=== PATIENT | female | born 1940 | race Caucasian/White ===

== ENCOUNTER 2018-06-19 16:09 | Outpatient (CLI) | payer MEDICARE, MEDICAID ==
[~2018-06-19] VITALS: Ht 165.1 cm; Wt 87.5 kg
[2018-06-19] MEDS ORDERED: albuterol 2.5 MG/3 ML nebule ONE (16:48)
[2018-06-19] MEDS ORDERED: albuterol 2.5 MG/3 ML nebule NEB ONE (16:48)
== END 2018-06-19 23:59 | disposition home or self-care (01) ==
LOC: RT 16:09
PROVIDERS: ATTEND Internal Medicine Pulmonary Disease
DX: J98.4 Other disorders of lung (principal); Z88.0 Allergy status to penicillin
CPT/HCPCS: 94060; 94727; 94729; 94760

== ENCOUNTER 2021-08-17 08:13 | Inpatient (IN) | payer MEDICARE, MEDICAID ==
[2021-08-10 15:45] LABS: CLARITY,URINE CLEAR (Clear); COLOR,URINE YELLOW (Yellow); GLUCOSE, URINE NEGATIVE (Neg); KETONES,URINE NEGATIVE (Neg); LEUKOCYTE ESTERASE ,URINE MODERATE (Neg); NITRITES, URINE NEGATIVE (Neg); OCCULT BLOOD,URINE NEGATIVE (Neg); PROTEIN,URINE NEGATIVE (Neg); UROBILINOGEN,URINE 0.2 E.U/dL (0.2-1.0)
[2021-08-10 15:46] LABS: BASOPHILS % (AUTO) 0.5 % (0-1); EOSINOPHILS # (AUTO) 0.3 X10'3 (0-0.9); EOSINOPHILS % (AUTO) 4.2 % (0-6); LYMPHOCYTES # (AUTO) 2.4 X10'3 (1.1-4.8); MEAN CORPUSCULAR HEMOGLOBIN 28.8 PG (27.0-31.0); MEAN CORPUSCULAR HGB CONC 32.6 g/dL (33.0-36.5); MEAN CORPUSCULAR VOLUME 88.4 FL (78-98); MEAN PLATELET VOLUME 8.2 FL (7.4-10.4); MONOCYTES # (AUTO) 0.6 X10'3 (0-0.9); MONOCYTES % (AUTO) 8.3 % (2-12); NEUTROPHILS # (AUTO) 4.3 X10'3 (1.8-7.7); PRE OP HEMATOCRIT 35.9 % (35.0-45.0); PRE OP HEMOGLOBIN 11.7 g/dL (12.0-16.0); PRE OP PLATELET COUNT 247 X10'3 (140-440); RED BLOOD COUNT 4.06 X10'6 (4.20-5.60); RED CELL DISTRIBUTION WIDTH 13.1 % (11.5-14.5)
[2021-08-10 15:48] LABS: UA COLLECTION TYPE CLN CATCH MIDSTREAM
[2021-08-10 15:49] LABS: BACTERIA,URINE 3+ /HPF (Neg); RBC,URINE 0-2 /HPF (0-2); SQUAMOUS EPITHELIAL CELL,UR FEW /LPF (FEW); WBC,URINE 30-50 /HPF (0-4)
[2021-08-10 15:50] LABS: WBC CLUMPS,URINE FEW /HPF (NEGATIVE)
[2021-08-10 16:01] LABS: ALBUMIN 3.8 G/DL (3.4-5.0); ALKALINE PHOSPHATASE 83 IU/L (46-116); BLOOD UREA NITROGEN 43 MG/DL (7-18); BUN/CREATININE RATIO 20.8 (6.6-38.0); CALCIUM 9.1 MG/DL (8.5-10.1); CHLORIDE 108 MMOL/L (99-107); CREATININE 2.07 MG/DL (0.40-0.90); PRE OP ALT 17 U/L (30-65); PRE OP ANION GAP 8 (8-16); PRE OP AST 15 U/L (10-37); PRE OP BILIRUB, TOTAL 0.4 MG/DL (0.0-1.0); PRE OP GLUCOSE 101 MG/DL (70-104); PRE OP POTASSIUM 4.5 MMOL/L (3.4-5.1); PRE OP SODIUM 140 MMOL/L (135-145); TOTAL CARBON DIOXIDE 24.1 MMOL/L (24-32); TOTAL PROTEIN 7.6 G/DL (6.4-8.2); eGFR 23 ML/MIN
[2021-08-17] VITALS (25 sets, daily range): BP systolic 111–147; BP diastolic 45–90
[~2021-08-17] VITALS: Ht 165.1 cm; Wt 84.0 kg
[~2021-08-17 08:13] MED LIST: AMLO25PO PO; BUPR150T8 PO; CHOL20004 PO; DOCUMENT DATE & TIME OF BETA-BLOCKER PO ONE; METO50TA17 PO; PRAV40TA3 PO; PRESERVISION EACHEYE; SERT100T PO; famotidine 20mg tablet PO ONE; ringers solution, lacted 1,000 ML IV SCH; tranexamic acid inj. 1,000 MG in 0.7% saline 100 ML PMX IV ONE; vancomycin 1,500 MG in NS 300ml IV soln IV ONE; vancomycin 1500mg/300ml PREMIX 250 ML IV ONE
--- NOTE | 2021-08-17 09:20 | NUR ---
CSM TO BILATERAL FEET INTACT. PEDAL PULSES NORMAL AND MARKED. PT USED OINTMENT TO NOSE X 4 DAYS, SHOWERED WITH HIBACLENS X 5 DAYS. PT DID WATCH THE DVD
[2021-08-17 10:33] LABS: PRE OP PROTIME 10.5 SECONDS (9.0-12.0)
[2021-08-17] MEDS ORDERED: ROPIVAcaine 0.5% (5mg/ml) 30ml vial ONE ×2 (10:51→11:03)
[2021-08-17] MEDS ORDERED: cloNIDine hcl/PF 100mcg/ml inj ONE (10:51)
[2021-08-17] MEDS ORDERED: tetracaine 1% (10mg/ml) pres. free inj. ONE (10:51)
[2021-08-17] MEDS ORDERED: fentaNYL/PF 50MCG/1 ML 2ML syringe ONE (10:55)
[2021-08-17] MEDS ORDERED: ketorolac trometh. 30mg/ml inj. ONE (11:02)
[2021-08-17] MEDS ORDERED: vancomycin 1,000mg inj ONE (11:03)
[2021-08-17] MEDS ORDERED: epiNEPHrine 1 mg/ml inj ONE (11:03)
[2021-08-17] MEDS ORDERED: morphine 10mg/ml inj. ONE (11:03)
[2021-08-17] MEDS ORDERED: ondansetron/PF 4mg/2ml inj IV PRN ×2 (11:05→14:35)
[2021-08-17] MEDS ORDERED: ringers solution, lacted 1,000 ML IV SCH (11:05)
[2021-08-17] MEDS ORDERED: glycopyrrolate 0.2mg/ml inj ONE (11:12)
[2021-08-17] MEDS ORDERED: MIDAZolam 1 MG/ML 5ML VIAL ONE (11:49)
[2021-08-17] MEDS ORDERED: ROPIVAcaine 0.2% (10 MG/5 ML) BOLUS INJECTION ADDCANAL PRN (13:10)
[2021-08-17] MEDS ORDERED: propofol inj 40 ML IV ONE (14:15)
--- NOTE | 2021-08-17 14:30 | NUR ---
Received from OR via HOSPITAL BED , accompanied by Anesthesiologist DR MATTHEWS and report given by Anesthesiolgist. PT PRESNTS WITH 20G LEFT AC,RIGHT KNEE WRAP WITH ON-Q AND POWDER PACK, VSS. Addendum: 08/17/21 at 1451 by Katerina Benites RN, RN Amended: Links added.
[2021-08-17] MEDS ORDERED: acetaminophen 325mg tablet PO PRN (14:35)
[2021-08-17] MEDS ORDERED: magnesium hydroxide 30ml (MOM) UD suspension PO PRN (14:35)
[2021-08-17] MEDS ORDERED: oxyCODONE IR 5mg (immed. release) tablet PO PRN (14:35)
[2021-08-17] MEDS ORDERED: HYDROmorphone inj. 0.5 MG/0.5 ML DISP.SYRIN IV PRN (14:35)
[2021-08-17] MEDS ORDERED: diphenhydrAMINE 25mg capsule PO PRN ×2 (14:35)
[2021-08-17] MEDS ORDERED: HYDROmorphone 1 mg/ml syringe IV PRN (14:35)
[2021-08-17] MEDS ORDERED: tranexamic acid inj. 1,000 MG in normal saline 100ml IV soln 100 ML IV ONE ×2 (14:35→18:00)
[2021-08-17] MEDS ORDERED: naloxone 0.4 mg/ml inj IV PRN (14:35)
[2021-08-17] MEDS ORDERED: bisacodyl 10mg suppository rectal RC PRN (14:35)
[2021-08-17] MEDS: ROPIVAcaine 0.2%/PF PUMP/bolus 545 ML ADDCANAL SCH (14:53)
[2021-08-17] MEDS ORDERED: meperidine/PF 25mg/ml syringe IV ONE (14:55)
[2021-08-17] MEDS: HYDROmorphone/PF 0.2 MG/ML SYRINGE IV PRN ×3 (15:54→16:31)
[2021-08-17] MEDS: morphine 2 MG/ML inj. syringe IV PRN ×2 (16:08→16:20)
[2021-08-17] MEDS: oxyCODONE IR 5mg (immed. release) tablet PO PRN ×2 (16:32→20:24)
--- NOTE | 2021-08-17 16:50 | NUR ---
Report called to receiving nurse ALVIN BOCANEGRA. Transferred via HOSPITAL BED TO ROOM 4009C WHERE 2 PT Belongings BAGS WERE TAKEN TO PT ROOM. BED IN LOW LOCKED POSITION, PT GIVEN CALL LIGHT AND HOOKED UP TO VITALS MONITOR. Special Issues communicated to receiving nurse.
--- NOTE | 2021-08-17 17:10 | NUR ---
Received from PACU via HOSPITAL BED , accompanied by HOME IMPROVEMENT CONTRACTOR. PT PRESENTS WITH 20G LEFT AC, RIGHT KNEE WRAP WITH ON-Q AND POWDER PACK, DRESSING CDI, VSS, ALERT AND ORIENTED, ORDERED DINNER AND GAVE PATIENT WATER.
--- NOTE | 2021-08-17 18:49 | NUR ---
Problems reprioritized. Patient report given, questions answered & plan of care reviewed with DALJIT Grullon.
[2021-08-17] MEDS ORDERED: vancomycin/NS 1 GM ADD-VANTAGE 250 ML IV SCH (20:00)
[2021-08-17] MEDS: potassium cl 20mEq in 1/2 NS 1,000 ML IV SCH ×2 (20:23→22:35)
[2021-08-17] MEDS: gabapentin 300mg capsule PO SCH (20:25)
[2021-08-17] MEDS: acetaminophen 325mg tablet PO SCH (20:25)
[2021-08-17] MEDS: sennosides 8.6mg tablet PO SCH (20:25)
[2021-08-18 02:00] VITALS: BP 134/52
[2021-08-18] MEDS: acetaminophen 325mg tablet PO SCH ×4 (02:00→19:35)
[2021-08-18] MEDS ORDERED: ceFAZolin inj. 2,000 MG in dextrose 5%-water 100 ML IV ONE (05:30)
[2021-08-18 06:00] VITALS: BP 147/49
[2021-08-18] MEDS: oxyCODONE IR 5mg (immed. release) tablet PO PRN ×2 (06:20→12:24)
[2021-08-18] MEDS: potassium cl 20mEq in 1/2 NS 1,000 ML IV SCH (06:35)
[2021-08-18 06:40] LABS: BASOPHILS % (AUTO) 0.1 % (0-1); EOSINOPHILS % (AUTO) 0.1 % (0-6); HEMOGLOBIN 9.9 g/dl (12.0-16.0); LYMPHOCYTES # (AUTO) 1.2 X10'3 (1.1-4.8); LYMPHOCYTES % (AUTO) 9.6 % (21-51); MEAN CORPUSCULAR HEMOGLOBIN 29.2 PG (27.0-31.0); MEAN CORPUSCULAR HGB CONC 33.1 g/dL (33.0-36.5); MEAN CORPUSCULAR VOLUME 88.3 FL (78-98); MEAN PLATELET VOLUME 8.1 FL (7.4-10.4); MONOCYTES % (AUTO) 8.1 % (2-12); NEUTROPHILS # (AUTO) 9.9 X10'3 (1.8-7.7); NEUTROPHILS % (AUTO) 82.1 % (42-75); PLATELET COUNT 198 X10'3 (140-440); RED CELL DISTRIBUTION WIDTH 13.6 % (11.5-14.5); WHITE BLOOD COUNT 12.1 X10'3 (4.5-11.0)
--- NOTE | 2021-08-18 06:40 | NUR ---
Patient in room [facility]TH[facility] 4009. I have received report from DALJIT Grullon and had the opportunity to ask questions and assume patient care.
[2021-08-18 06:56] LABS: ANION GAP 7 (8-16); CHLORIDE 108 MMOL/L (99-107); POTASSIUM 4.7 MMOL/L (3.5-5.1); SODIUM 138 MMOL/L (135-145); TOTAL CARBON DIOXIDE 22.9 MMOL/L (24-32)
[2021-08-18] MEDS ORDERED: PRESERVISION EACHEYE SCH (08:00)
[2021-08-18] MEDS: metoprolol tartrate 25mg tablet PO SCH ×2 (08:44→19:37)
[2021-08-18] MEDS: gabapentin 300mg capsule PO SCH ×3 (08:44→21:03)
[2021-08-18] MEDS: buPROPion 75mg tablet PO SCH (08:45)
[2021-08-18] MEDS: enoxaparin 40mg/0.4ml syringe SQ SCH (08:46)
--- NOTE | 2021-08-18 09:45 | NUR ---
FC ALMITA'silviano, pt tolerated well.
[2021-08-18 10:00] VITALS: BP 138/45
[2021-08-18 14:00] VITALS: BP 135/50
[2021-08-18 18:00] VITALS: BP 150/57
--- NOTE | 2021-08-18 18:15 | NUR ---
Patient in room ORTH[facility] 4009C. I have received report from DALJIT Calero and had the opportunity to ask questions and assume patient care.
--- NOTE | 2021-08-18 18:22 | NUR ---
Problems reprioritized. Patient report given, questions answered & plan of care reviewed with RICHARD Dubois. Addendum: 08/18/21 at 1823 by Galilea Camacho RN report given to DALJIT Martinez
[2021-08-18] MEDS: celeCOXIB 100mg capsule PO SCH (19:35)
[2021-08-18] MEDS: amLODIPine 5mg tablet PO SCH (21:03)
[2021-08-18] MEDS: pravastatin 40mg tablet PO SCH (21:03)
[2021-08-18] MEDS: sennosides 8.6mg tablet PO SCH (21:03)
[2021-08-18 22:00] VITALS: BP 145/49
[2021-08-19] MEDS: acetaminophen 325mg tablet PO SCH ×3 (02:00→13:40)
[2021-08-19 04:00] VITALS: BP 138/52
--- NOTE | 2021-08-19 06:37 | NUR ---
Patient in room [facility]TH[facility] 4009. I have received report from DALJIT Martinez and had the opportunity to ask questions and assume patient care.
[2021-08-19 07:25] LABS: BASOPHILS % (AUTO) 0.3 % (0-1); EOSINOPHILS # (AUTO) 0.4 X10'3 (0-0.9); EOSINOPHILS % (AUTO) 4.5 % (0-6); HEMATOCRIT 29.2 % (35.0-45.0); HEMOGLOBIN 9.5 g/dl (12.0-16.0); LYMPHOCYTES # (AUTO) 1.8 X10'3 (1.1-4.8); LYMPHOCYTES % (AUTO) 18.4 % (21-51); MEAN CORPUSCULAR HEMOGLOBIN 28.8 PG (27.0-31.0); MEAN CORPUSCULAR HGB CONC 32.6 g/dL (33.0-36.5); MEAN CORPUSCULAR VOLUME 88.3 FL (78-98); MEAN PLATELET VOLUME 8.1 FL (7.4-10.4); MONOCYTES # (AUTO) 1.2 X10'3 (0-0.9); MONOCYTES % (AUTO) 12.8 % (2-12); NEUTROPHILS # (AUTO) 6.2 X10'3 (1.8-7.7); PLATELET COUNT 175 X10'3 (140-440); RED CELL DISTRIBUTION WIDTH 13.6 % (11.5-14.5); WHITE BLOOD COUNT 9.8 X10'3 (4.5-11.0)
[2021-08-19] MEDS: metoprolol tartrate 25mg tablet PO SCH ×2 (08:49→20:50)
[2021-08-19] MEDS: buPROPion 75mg tablet PO SCH (08:49)
[2021-08-19] MEDS: gabapentin 300mg capsule PO SCH ×3 (08:49→20:50)
[2021-08-19] MEDS: celeCOXIB 100mg capsule PO SCH ×2 (08:49→20:49)
[2021-08-19] MEDS: enoxaparin 40mg/0.4ml syringe SQ SCH (08:52)
[2021-08-19 10:00] VITALS: BP 158/49
[2021-08-19] MEDS ORDERED: acetaminophen 325mg tablet PO PRN (14:35)
[2021-08-19] MEDS: ROPIVAcaine 0.2%/PF PUMP/bolus 545 ML ADDCANAL SCH (15:38)
[2021-08-19 17:00] VITALS: BP 139/62
--- NOTE | 2021-08-19 18:45 | NUR ---
Patient in room ORTH[facility] 4009. I have received report from Galilea BOCANEGRA and had the opportunity to ask questions and assume patient care.
--- NOTE | 2021-08-19 18:49 | NUR ---
Problems reprioritized. Patient report given, questions answered & plan of care reviewed with DALJIT Quigley.
[2021-08-19] MEDS: sennosides 8.6mg tablet PO SCH (20:49)
[2021-08-19 20:50] VITALS: BP 132/47
[2021-08-19] MEDS: amLODIPine 5mg tablet PO SCH (20:50)
[2021-08-19] MEDS: pravastatin 40mg tablet PO SCH (20:59)
--- NOTE | 2021-08-19 21:00 | NUR ---
no brace is available, pt states that the L brace is too small and there are no XL ones stocked currently on the floor. will continue to monitor
[2021-08-19 22:00] VITALS: BP 134/50
[2021-08-20 06:00] VITALS: BP 153/53
--- NOTE | 2021-08-20 06:10 | NUR ---
Patient in room ORTH[facility] 4009. I have received report from Soraida and had the opportunity to ask questions and assume patient care.
--- NOTE | 2021-08-20 06:31 | NUR ---
Problems reprioritized. Patient report given, questions answered & plan of care reviewed with Cindy BOCANEGRA.
[2021-08-20 07:14] LABS: BASOPHILS % (AUTO) 0.3 % (0-1); EOSINOPHILS # (AUTO) 0.5 X10'3 (0-0.9); EOSINOPHILS % (AUTO) 4.6 % (0-6); HEMATOCRIT 29.4 % (35.0-45.0); HEMOGLOBIN 9.9 g/dl (12.0-16.0); LYMPHOCYTES # (AUTO) 1.6 X10'3 (1.1-4.8); LYMPHOCYTES % (AUTO) 14.9 % (21-51); MEAN CORPUSCULAR HEMOGLOBIN 29.9 PG (27.0-31.0); MEAN CORPUSCULAR HGB CONC 33.6 g/dL (33.0-36.5); MEAN CORPUSCULAR VOLUME 89.1 FL (78-98); MONOCYTES # (AUTO) 1.3 X10'3 (0-0.9); MONOCYTES % (AUTO) 11.8 % (2-12); NEUTROPHILS # (AUTO) 7.4 X10'3 (1.8-7.7); NEUTROPHILS % (AUTO) 68.4 % (42-75); PLATELET COUNT 171 X10'3 (140-440); RED CELL DISTRIBUTION WIDTH 13.5 % (11.5-14.5); WHITE BLOOD COUNT 10.8 X10'3 (4.5-11.0)
[2021-08-20] MEDS: gabapentin 300mg capsule PO SCH ×3 (08:28→20:13)
[2021-08-20] MEDS: metoprolol tartrate 25mg tablet PO SCH ×2 (08:28→20:14)
[2021-08-20] MEDS: celeCOXIB 100mg capsule PO SCH ×2 (08:28→20:14)
[2021-08-20] MEDS: buPROPion 75mg tablet PO SCH (08:28)
[2021-08-20] MEDS: sertraline 50mg tablet PO SCH (08:29)
[2021-08-20] MEDS: enoxaparin 40mg/0.4ml syringe SQ SCH (08:29)
[2021-08-20 10:00] VITALS: BP 129/41
[2021-08-20 17:00] VITALS: BP 122/49
--- NOTE | 2021-08-20 18:14 | NUR ---
Problems reprioritized. Patient report given, questions answered & plan of care reviewed with Soraida.
--- NOTE | 2021-08-20 18:15 | NUR ---
Patient in room ORTH[facility] 4009. I have received report from Cindy BOCANEGRA and had the opportunity to ask questions and assume patient care.
[2021-08-20] MEDS: sennosides 8.6mg tablet PO SCH (19:50)
[2021-08-20 20:08] VITALS: BP 134/43
[2021-08-20] MEDS: pravastatin 40mg tablet PO SCH (20:09)
[2021-08-20] MEDS: amLODIPine 5mg tablet PO SCH (20:13)
[2021-08-20 22:00] VITALS: BP 139/44
[2021-08-21 05:00] VITALS: BP 137/40
--- NOTE | 2021-08-21 06:39 | NUR ---
Problems reprioritized. Patient report given, questions answered & plan of care reviewed with Elsa BOCANEGRA.
--- NOTE | 2021-08-21 06:46 | NUR ---
Patient in room [facility]TH[facility] 4009. I have received report from DALJIT Quigley and had the opportunity to ask questions and assume patient care.
[2021-08-21] MEDS: gabapentin 300mg capsule PO SCH ×3 (09:19→21:40)
[2021-08-21] MEDS: buPROPion 75mg tablet PO SCH (09:20)
[2021-08-21] MEDS: celeCOXIB 100mg capsule PO SCH ×2 (09:20→21:39)
[2021-08-21] MEDS: metoprolol tartrate 25mg tablet PO SCH ×2 (09:22→21:41)
[2021-08-21] MEDS: enoxaparin 40mg/0.4ml syringe SQ SCH (09:23)
[2021-08-21] MEDS: sertraline 50mg tablet PO SCH (09:23)
[2021-08-21 10:00] VITALS: BP 137/52
[2021-08-21 18:00] VITALS: BP 150/62
--- NOTE | 2021-08-21 18:49 | NUR ---
Today I was off ratio again with 6 patients so medication administration and patient care was delayed.
--- NOTE | 2021-08-21 18:49 | NUR ---
Problems reprioritized. Patient report given, questions answered & plan of care reviewed with DALJIT Mcnulty.
[2021-08-21] MEDS: sennosides 8.6mg tablet PO SCH (21:00)
[2021-08-21] MEDS: amLODIPine 5mg tablet PO SCH (21:40)
[2021-08-21] MEDS: pravastatin 40mg tablet PO SCH (21:42)
[2021-08-21 22:00] VITALS: BP 165/54
[2021-08-22 06:00] VITALS: BP 149/48
--- NOTE | 2021-08-22 06:37 | NUR ---
Problems reprioritized. Patient report given, questions answered & plan of care reviewed with kobi Hunter.
--- NOTE | 2021-08-22 06:47 | NUR ---
Patient in room [facility]TH[facility] 4009. I have received report from DALJIT Mcnulty and had the opportunity to ask questions and assume patient care.
--- NOTE | 2021-08-22 07:36 | NUR ---
Initial: Noted pt s/p R knee arthroplasty this admit. Currently on Regular diet w/ mostly 100% intake of meals meeting est nutrient needs at this time. LBM 08/01 receiving routine senna. No nutrition intervention implemented at this time. Will continue to monitor. Recs: 1. Continue Regular diet as tolerated 2. Bowel care per rx 3. Weekly wts Addendum: 08/22/21 at [address] Amended: Links added.
[2021-08-22] MEDS: metoprolol tartrate 25mg tablet PO SCH (09:01)
[2021-08-22] MEDS: gabapentin 300mg capsule PO SCH (09:01)
[2021-08-22] MEDS: celeCOXIB 100mg capsule PO SCH (09:01)
[2021-08-22] MEDS: buPROPion 75mg tablet PO SCH (09:02)
[2021-08-22] MEDS: sertraline 50mg tablet PO SCH (09:02)
[2021-08-22] MEDS: enoxaparin 40mg/0.4ml syringe SQ SCH (09:03)
[2021-08-22 10:00] VITALS: BP 150/81
--- NOTE | 2021-08-22 10:29 | NUR ---
Talked to case management and was told that home health will be arranged for the patient. Was instructed to proceed with the discharge.
--- NOTE | 2021-08-22 11:33 | NUR ---
Patient was discharged at 1120 with instructions and verbalizing understanding of instructions, in wheelchair accompanied by nursing staff. She is going to live with a friend for a few days and left the hospital accompanied by said friend in a private vehicle. All lines and tubes including the IV with intact cannula have been removed. Patient does not have any new medications. Education has been provided about medications to be continued and all questions have been answered. Patient will follow up with DR. Jaramillo. Patient is stable and appropriate for discharge.
== END 2021-08-22 11:20 | disposition home health service (06) | DRG 470 ==
LOC: PAS IN 08:13 → ORTHO 4S 16:50
PROVIDERS: ADMIT Orthopaedic Surgery; ATTEND Orthopaedic Surgery
PROC: 3E0T3BZ Introduction of Anesthetic Agent into Peripheral Nerves and Plexi, Percutaneous Approach (ICD-10-PCS; 2021-08-17)
PROC: 0SRC0J9 Replacement of Right Knee Joint with Synthetic Substitute, Cemented, Open Approach (ICD-10-PCS; principal; 2021-08-17 11:12)
DX: M17.11 Unilateral primary osteoarthritis, right knee (principal)
CPT/HCPCS: 36415; 71046; 73560; 80051; 80053; 81001; 82948; 85025; 85610; 85730; 87077; 87081; 87088; 87186; 97110; 97116; 97161; 97530; A4215; A7000; C1713; C1758; C1776; C9250; G0378; J0171; J0690; J0735; J1170; J1650; J1885; J2175; J2250; J2270; J2274; J2704; J2795; J3010; J3370; J3480; J3490; J7040; J7060; J7120; Q0163

== ENCOUNTER 2023-11-16 08:27 | Day surgery (SDC) | payer MEDICARE, MEDICAID ==
[~2023-11-16] VITALS: Ht 165.1 cm; Wt 86.8 kg
[~2023-11-16 08:27] MED LIST changes: +CHOL20002 PO; -CHOL20004 PO; +DOCU-337 PO; -DOCUMENT DATE & TIME OF BETA-BLOCKER PO ONE; -famotidine 20mg tablet PO ONE; -ringers solution, lacted 1,000 ML IV SCH; -tranexamic acid inj. 1,000 MG in 0.7% saline 100 ML PMX IV ONE; -vancomycin 1,500 MG in NS 300ml IV soln IV ONE; -vancomycin 1500mg/300ml PREMIX 250 ML IV ONE
[2023-11-16 09:07] VITALS: BP 156/51; PULSE 52; RESP 16
[2023-11-16 10:10] VITALS: BP 135/49; PULSE 61; RESP 13; O2SAT 99
[2023-11-16 10:20] VITALS: BP 151/57; PULSE 57; RESP 14; O2SAT 99
[2023-11-16] MEDS ORDERED: propofol inj 20 ML IV ONE ×2 (10:27)
[2023-11-16] MEDS ORDERED: propofol inj 40 ML IV ONE (10:28)
[2023-11-16 10:30] VITALS: BP 158/56; PULSE 58; RESP 14; O2SAT 99
[2023-11-16 10:40] VITALS: BP 152/54; PULSE 56; RESP 19; O2SAT 100
== END 2023-11-16 10:48 | disposition home or self-care (01) ==
LOC: GI LAB 08:27
PROVIDERS: ATTEND Internal Medicine Gastroenterology
DX: R19.7 Diarrhea, unspecified (principal); I12.9 Hypertensive chronic kidney disease with stage 1 through stage 4 chronic kidney disease, or unspecified chronic kidney disease; N18.9 Chronic kidney disease, unspecified; G47.30 Sleep apnea, unspecified; Z88.0 Allergy status to penicillin
CPT/HCPCS: 45331; A4620; J2704; J7030; Z7512; 88305

== ENCOUNTER 2024-10-06 19:07 | Inpatient (IN) | payer MEDICARE, MEDICAID ==
[~2024-10-06] VITALS: Ht 165.1 cm; Wt 88.0 kg
[~2024-10-06 19:07] MED LIST changes: +PRAV40TA17 PO; -PRAV40TA3 PO
--- NOTE | 2024-10-06 19:23 | Physician Documentation ---
History of Present Illness ~ Chief Complaint: Mechanical Fall Stated Complaint: FALL Time Seen by MD: 19:23 HPI Patient presents to the emergency room after a mechanical fall at home. She states she was putting away some dishes when she became lightheaded and fell striking her right side of her head and hurting her right ankle. She states she has been dealing with feeling lightheaded and passing out for the past year and has been worked up by her operations architect but nobody can figure this out. She denies any palpitations or chest pain. Other than her head in her right ankle she does report mild pain to her left ankle as well Medication Reconciliation Allergies: Coded Allergies: No Known Drug Allergies (Verified Allergy, Unknown, 08/17/21) Penicillins (Verified Adverse Reaction, Unknown, 08/17/21) local reaction (soreness, redness) to an injection. Scheduled Amlodipine Besylate (Amlodipine Besilate), 10 MG PO HS, (Reported) Bupropion Hcl SR* (Wellbutrin SR*), 75 MG PO DAILY, (Reported) Cholecalciferol (Vitamin D3) (Vitamin D3), 1 CAP PO DAILY, (Reported) Docusate Sodium (Stool Softener), 1 CAP PO DAILY, (Reported) Pravastatin Sodium (Pravastatin Sodium), 1 TAB PO HS, (Reported) [preservision drops], 1 DROP EACHEYE BID, (Reported) Miscellaneous Medications Sertraline Hcl (Zoloft), 150 MG PO, (Reported) Discontinued Medications Metoprolol Tartrate* (Metoprolol Tartrate*), 25 MG PO Q12H, (Reported) Discontinued Reason: patient no longer taking Past Medical History Patient History: Patient reports no known family medical history. Review of Systems ROS All review of systems negative except as per HPI Physical Exam Vital Signs: Temperature: 98.4, Source: Oral, Heart Rate: 66, Respiratory Rate: 17, BP: 146/62, Pulse Oximetry: 96, Weight: 88.000 Physical Exam General: Patient is awake, alert, oriented x4 in no acute distress Head: Normocephalic and atraumatic. Eyes: Conjunctival normal. EOMI. PERRL. ENT: Mucous membranes moist. Neck: Supple, trachea is midline. Positive tenderness to palpation to cervical spine. Chest: Clear to auscultation bilaterally without rales, rhonchi, or wheezes. There is no accessory muscle use or retractions. Cardiac: RRR without murmurs, gallops, or rubs. Extremities: Right ankle in splint with 1+ dorsalis pedis pulse intact. Left ankle with tenderness to palpation to lateral left malleolus. Neurovascularly intact. Progress Results/Orders Results/Orders Orders - SHAHZAD ESCALONA MD Electrocardiogram (10/06/24 19:30) Chest,Single View (10/06/24 20:44) Urinalysis (10/06/24 19:30) Ankle,Limited (Ap/Lat) (10/06/24 20:44) Ct Head (10/06/24 20:20) Ct Cervical Spine (10/06/24 20:20) Ankle,Limited (Ap/Lat) (10/06/24 20:44) Page Hospitalist (10/06/24 22:14) Fill Out Med Reconciliation (10/06/24 22:14) Completed Orders - SHAHZAD ESCALONA MD Cbc/Diff (10/06/24 19:30) PBNP (10/06/24 19:30) Chest,Single View (10/06/24 20:44) BMP (10/06/24 19:30) Ankle,Limited (Ap/Lat) (10/06/24 20:44) Ct Head (10/06/24 20:20) Ct Cervical Spine (10/06/24 20:20) Acetaminophen 1,000mg/100ml Iv (Ofirmev (10/06/24 19:35) Ondansetron Inj. (Zofran 4mg/2ml Vial) (10/06/24 19:35) Fentanyl/Pf (Fentanyl 0.05 Mg/Ml Syringe (10/06/24 19:35) Ankle,Limited (Ap/Lat) (10/06/24 20:44) Troponin (Single) (10/06/24 21:21) Morphine 4mg/Ml Inj. (Morphine Inj.) (10/06/24 22:25) Medications Received in ER Medications (Trade) Dose Ordered Sig/Anegl Route PRN Reason Start Time Stop Time Status Last Admin Dose Admin Acetaminophen 100 ml @ 400 mls/hr ONCE ONCE IV 10/06/24 19:35 10/06/24 19:49 DC 10/06/24 20:01 400 MLS/HR (Zofran 4mg/2ml vial) 4 mg ONCE ONCE IV 10/06/24 19:35 10/06/24 19:36 DC 10/06/24 20:00 4 MG (fentaNYL 0.05 MG/ML syringe) 50 mcg ONCE ONCE IV 10/06/24 19:35 10/06/24 19:36 DC 10/06/24 20:00 50 MCG Vital Signs 10/06/24 10/06/24 10/06/24 10/06/24 19:12 19:19 19:52 20:00 Temp 98.4 98.4 Pulse 70 66 Resp 16 17 20 B/P (MAP) 146/62 146/62 (90) Pulse Ox 93 96 Laboratory Tests Test 10/06/24 19:38 White Blood Count 9.6 Red Blood Count 3.60 L Hemoglobin 11.0 L Hematocrit 31.7 L Mean Corpuscular Volume 87.9 Mean Corpuscular Hemoglobin 30.4 Mean Corpuscular Hemoglobin Concent 34.6 Red Cell Distribution Width 13.9 Platelet Count 246 Mean Platelet Volume 7.1 L Neutrophils (%) (Auto) 67.3 Lymphocytes (%) (Auto) 19.9 L Monocytes (%) (Auto) 8.4 Eosinophils (%) (Auto) 4.0 Basophils (%) (Auto) 0.4 Neutrophils # (Auto) 6.5 Lymphocytes # (Auto) 1.9 Monocytes # (Auto) 0.8 Eosinophils # (Auto) 0.4 Basophils # (Auto) 0.0 CBC Comment Sodium Level 142 Potassium Level 4.3 Chloride Level 108 H Carbon Dioxide Level 24.2 Anion Gap 10 Blood Urea Nitrogen 42 H Creatinine 2.28 H Estimated GFR/1.73 m2 21 BUN/Creatinine Ratio 18.4 Glucose Level 129 H Calcium Level 8.6 Troponin I High Sensitivity 11 Pro-B-Type Natriuretic Peptide 275 Albumin 3.3 L Chemistry Comments EKG/XRAY/CT/US/VASC/MRI EKG : Additional Comment EKG interpreted by myself shows time of 2000, rate 69, sinus rhythm, left axis deviation, no ST changes Medical Decision Making Findings Patient presented to the emergency room with right lower extremity pain. Differentials include but are not limited to fractures, dislocation, soft tissue injury. Patient also endorses some degree of dizziness therefore concerns for possible cardiac arrhythmia/ACS therefore emergent labs and imaging indicated. Patient with an unstable fracture to right lower extremity. Orthopedist has been consulted. Departure Admitted to Inpatient Unit: yes, to hospitalist Impression: Primary Impression: Closed right ankle fracture Condition: Guarded Referrals: NO PRIMARY CARE PROVIDER (PCP) Signature Scribe Signature: No scribe Attestation: The note accurately reflects work and decisions made by me.Shahzad Escalona MD 10/06/24 23:25 SHAHZAD ESCALONA MD Oct 06, 2024 19:23
[2024-10-06 19:54] LABS: MEAN PLATELET VOLUME 7.1 FL (7.4-10.4); RED CELL DISTRIBUTION WIDTH 13.9 % (11.5-14.5)
[2024-10-06] MEDS: ondansetron/PF 4mg/2ml inj IV ONE (20:00)
[2024-10-06] MEDS: fentaNYL/PF 50MCG/1 ML 2ML syringe IV ONE (20:00)
[2024-10-06] MEDS: acetaminophen 1,000mg/100ml IV 100 ML IV ONE (20:01)
[2024-10-06 20:12] LABS: CREATININE 2.28 MG/DL (0.40-0.90); PRO BRAIN NATRIURETIC PEPTIDE 275 PG/ML (0-450); TOTAL CARBON DIOXIDE 24.2 MMOL/L (24-32); eCRCL 17 ML/MIN; eGFR 21 ML/MIN
--- NOTE | 2024-10-06 21:11 | RADIOLOGY REPORT ---
EXAM: CT CT CERVICAL SPINE INDICATION: fall EXAM DATE: 10/06/2024 08:22 PM COMPARISON: None TECHNIQUE: Multiple axial CT images of the cervical spine were obtained using bone algorithm. Axial a nd coronal reformatting was done. Bone and soft tissue windows were reviewed. Radiation Dose Information: CT Dose: CTDI volume is 20.3 mGy. Dose-length product is 450 and mGy*cm FINDINGS: The cervical alignment is intact. No acute cervical spine fracture is identified. The vertebral body heights are intact. No suspicious osseous lesions are identified. Moderate to severe degenerative changes throughout the cervical spine There is no prevertebral soft tissue swelling. IMPRESSION: 1. No evidence of acute cervical spine fracture or traumatic malalignment. 2. Moderate to severe degenerative changes throughout the cervical spine. All CT scans at this medical facility are performed using dose modulation techniques as appropriate t o a performed exam including the following: Automated exposure control was utilized; adjustment of th e MA and/or KV according to patient size; and use of iterative reconstruction technique.
--- NOTE | 2024-10-06 21:47 | RADIOLOGY REPORT ---
CHEST RADIOGRAPH REASON FOR EXAM: Chest pain COMPARISON: 2-view chest 08/10/2021 TECHNIQUE: One view of the chest is provided FINDINGS: The cardiomediastinal silhouette is within normal limits for technique. There is no focal a irspace disease. There is no significant pleural effusion. No acute bony abnormality is identified. IMPRESSION: No radiographic evidence of acute cardiopulmonary process.
--- NOTE | 2024-10-06 21:49 | RADIOLOGY REPORT ---
EXAM: DI ANKLE,LIMITED (AP/LAT) REASON FOR EXAM: BILAT ANKLE PAIN TECHNIQUE: AP and cross-table lateral views of the right ankle are submitted for review. COMPARISON: KNEE LIMITED (AP/LAT) on DOS: 08/17/21 FINDINGS: There is acute fracture of medial and lateral malleoli. There is widening of the ankle mort ise at the medial aspect. There is mild lateral displacement of the talus with respect to the tibial plafond. There is severe soft tissue swelling about the ankle. IMPRESSION: Acute fracture of medial and lateral malleoli with widening of the medial aspect of the ankle mortise .
--- NOTE | 2024-10-06 21:52 | RADIOLOGY REPORT ---
EXAM: LEFT ANKLE,LIMITED (AP/LAT) REASON FOR EXAM: BILAT ANKLE PAIN TECHNIQUE: AP and cross-table lateral views of the left ankle are submitted for review. COMPARISON: None FINDINGS: There is no evidence of acute fracture or dislocation. There is a small dorsal calcaneal sp ur. There is no widening of the ankle mortise. The soft tissues are unremarkable. IMPRESSION: No acute fracture or dislocation.
--- NOTE | 2024-10-06 22:00 | RADIOLOGY REPORT ---
EXAM: CT CT HEAD INDICATION: fall TECHNIQUE: CT of the head without intravenous contrast. Radiation Dose : 1. Head: CT Dose: CTDI volume is 54 mGy. Dose-length product is 1022 mGy*cm The dose indicators for CT are the volume Computed Tomography (CT) Dose Index (CTDIvol) and the Dose Length Product (DLP), and are measured in units of mGy and mGy-cm, respectively. These indicators are not patient dose, but values generated from the CT scanner acquisition factors. The report includes radiation exposure data for exposures received during this examination. COMPARISON: None FINDINGS: There is no evidence of acute intracranial hemorrhage, extra-axial collection, mass effect, midline s hift, herniation or hydrocephalus. The ventricles, sulci and cisterns are age appropriate. The see-white differentiation is intact. Patchy periventricular and subcortical white matter hypoattenuation is nonspecific but may be related to small vessel ischemic disease. The visualized paranasal sinuses and mastoid air cells are clear. The surrounding soft tissues and osseous structures are unremarkable. IMPRESSION: 1. No acute intracranial abnormality. 2. Chronic microvascular ischemic changes Radiation optimization: All CT scans at this facility use at least one of these dose optimization hai hniques: automated exposure control mA and/or kV adjustment per patient size (includes targeted exam s where dose is matched to clinical indication) or iterative reconstruction.
[2024-10-06] MEDS: morphine 4 MG/ML inj SYRINge IV ONE (22:25)
[2024-10-06] MEDS ORDERED: magnesium Cl slow-release 64mg tablet PO PRN (23:40)
[2024-10-06] MEDS ORDERED: potassium Cl 20 mEq SR tablet PO PRN ×2 (23:40)
[2024-10-06] MEDS ORDERED: mag hydrox/Alum hydrox/simeth 30ml oral suspension PO PRN (23:40)
[2024-10-06] MEDS ORDERED: magnesium sulf-water 4G/100mL 100 ML IV PRN (23:40)
[2024-10-06] MEDS ORDERED: magnesium hydroxide 30ml (MOM) UD suspension PO PRN (23:40)
[2024-10-06] MEDS ORDERED: magnesium sulf-water 2g/50mL 50 ML IV PRN (23:40)
[2024-10-06] MEDS ORDERED: potassium Cl 40MEQ/1/2NS 520ml 520 ML IV PRN (23:40)
[2024-10-06] MEDS ORDERED: ondansetron/PF 4mg/2ml inj IV PRN (23:40)
[2024-10-07] VITALS (7 sets, daily range): BP systolic 123–156; BP diastolic 42–96; PULSE 64–69; RESP 13–18; TEMP 97.4–98.2; O2SAT 94–96
--- NOTE | 2024-10-07 | HISTORY AND PHYSICAL-Residence ---
History & Physical Providers to Resident Creating Document: GABE MORRIS RES ~ History of Present Illness Primary Medical Doctor: Dr. Iniguez Reason for Admit\Complaint: Fall/dizziness History of Present Illness The 84-year-old female presented to the ER with significant right ankle pain after a fall. States that she just started dinner and went into the kitchen to place dishes and felt dizzy and fell to the floor. She felt unsteady and denies any other symptoms like nausea, chest pain, palpitations, shortness of breaths. She is unsure about losing consciousness. She had similar episode of dizziness about a week back while she was standing but did not fall back then. She did not realize that she dropped her hot chocolate back then and so is concerned about that episode as well. Mentioned that she usually feels dizzy when she walks and the symptom resolves when she sits. Denies any dizziness when she stands up from the sitting position. She got referred to the retail department reset-Dr. Gaitan for her symptoms and was told that there is nothing abnormal with a heart. Denies any Holter monitoring. Denies any previous CVA/AL/arrhythmias. Denies any dysuria, spinning sensation, nausea or vomiting, ringing sensation. States that she has significantly decreased vision in her bilateral eyes. Was diagnosed with bilateral macular degeneration in 2017 and received injections for few years. Now, can only see through a magnifying glass. She can not see people's faces but knows that there is somebody standing there. Lives by herself Allergies: Coded Allergies: No Known Drug Allergies (Verified Allergy, Unknown, 08/17/21) Penicillins (Verified Adverse Reaction, Unknown, 08/17/21) local reaction (soreness, redness) to an injection. Home Medications Home Medications Active Reported Stool Softener (Docusate Sodium) 100 Mg Capsule 1 Cap PO DAILY Vitamin D3 (Cholecalciferol (Vitamin D3)) 50 Mcg (2000 Unit) Capsule 1 Cap PO DAILY [preservision drops] 1 Drop EACHEYE BID Pravastatin Sodium 40 Mg Tablet 1 Tab PO HS Amlodipine Besilate (Amlodipine Besylate) 25 Gm Powder 10 Mg PO HS Wellbutrin SR* (Bupropion HCl) 150 Mg Tablet.sa 75 Mg PO DAILY LOOK-ALIKE SOUND-ALIKE DRUG buSPIRone & buPROPion Zoloft (Sertraline Hcl) 100 Mg Tablet 150 Mg PO Past Medical History Past Medical History Hypotension, depression, hyperlipidemia Past Surgical History Surgical History Comment Bilateral knee replacement, bilateral cataract surgery, cholecystectomy Family History Family History: Patient reports no known family medical history. Past Social History Social History Comment Denies smoking tobacco, drinking alcohol or abusing any other recreational drugs ROS ROS Constitutional: Dizziness present. No fever, chills, weakness, weight gain or loss Eyes: No pain, erythema, discharge, blurring of vision ENT: No sore throat, epistaxis, tinnitus Cardiovascular: No chest pain, chest pressure, chest discomfort, palpitations, syncope, lower extremity edema, paroxysmal nocturnal dyspnea Respiratory: No shortness of breath, cough, hemoptysis Gastrointestinal: Normal appetite. No nausea, vomiting, diarrhea, constipation, hematemesis, abdominal pain, bloating, melena or fresh blood Genitourinary: No frequency, urgency, nocturia, hematuria or dysuria Musculoskeletal: Bilateral ankle pain present. No myalgias Integumentary: No change in skin, hair, nails. No swelling, bruising, abrasions Neurologic: No headache, neck pain, numbness or tingling of the extremities, weakness Psychiatric: No delusions, depression, loss of interest in normal activity or change in sleep pattern, hallucinations, suicidal ideations Endocrine: No fatigue, weakness, polydipsia, polyuria, change in appetite, heat or cold intolerance, sweating, dry skin Hematological: No bleeding, petechiae, bruising Allergies: No asthma or urticaria Exam Vitals: Vital Signs Date Time Temp Pulse Resp B/P (MAP) Pulse Ox O2 Delivery O2 Flow Rate FiO2 10/06/24 22:30 62 18 132/56 (81) 92 0 10/06/24 19:19 98.4 General: Alert and oriented x4 HEENT: Normocephalic and atraumatic. Pupils equal round reactive to light and accommodation. Extraocular movements intact. Oral and nasal mucosa moist. 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 No masses or JVD. No bilateral carotid bruit Chest: Bilateral normal breath sounds. No crackles, rhonchi or wheezes Cardiovascular: Regular rate and rhythm. S1-S2 normal. No rubs or murmurs Abdomen: Soft, nontender nondistended. Bowel sounds present Extremities: No cyanosis, or clubbing. Edema around right ankle.. Right ankle in immobilizing splint. Bilateral 2+ pedal pulse. Able to move her toes in bilateral feet without any difficulty Central Nervous System: No gross sensory or motor deficits. CN II to XII intact. Not able to move her right ankle due to pain Skin: Warm and dry Diagnostic Data Last Recorded Lab Results: 10/06/24193710/06/241937 Advance Care Planning Advanced Care plannin - 30 Minutes Additional Plan Right ankle fracture with ground level fall Right ankle showed Acute fracture of medial and lateral malleoli with widening of the medial aspect of the ankle mortise. There is mild lateral displacement of the talus with respect to the tibial plafond. There is severe soft tissue swelling about the ankle. ER physician consulted on-call ortho-Dr. Jaramillo who consulted the space sciences director Dr. Jamal Thomason who will see the patient in a.m. Pain management morphine NPO after midnight for any possible surgical procedure Started DVT prophylaxis Hepatitis no surgical procedure Requires outpatient DEXA scan for osteopenia/osteoporosis Continue home medication vitamin-D Dizziness Recurrent episodes Possible vasovagal syncope with prolonged standing Bilateral carotid ultrasound ordered Echocardiogram ordered EKG showed sinus rhythm without any significant ST or T-wave changes. Has artifacts Continue telemetry monitoring Orthostatic vitals ordered Encouraged compression stockings Started normal saline 75 cc/hour Takes bupropion and sertraline at home Continued bupropion 150 mg p.o. daily. Discuss with the patient and start sertraline as tolerated Pending UA and urine tox HbA1c, vitamin B12, TSH and free T4 ordered Chronic kidney disease Hypertension States that she has stage III CKD Unsure if there is underlying SUN. No baseline available Continue monitoring RFTs Continued home medication amlodipine 10 mg p.o. daily Continue normal saline at 75 cc/hour Hyperlipidemia Lipid panel ordered Continue home medication Parvastatin 40 mg p.o. daily Diet: NPO after midnight Gabe Morris MD Internal Medicine Resident, PGY 3 Patient evaluated using HIPPA Compliant AV device Agree with plan as outlined above Stephan Atkins MD Date of Service: Oct 07, 2024 Billing Provider: STEPHAN ATKINS MD, MANOJNA RES Oct 07, 2024 00:00 STEPHAN ATKINS MD Oct 07, 2024 01:42
[2024-10-07] MEDS: normal saline 1000ml 1,000 ML IV SCH (00:26)
[2024-10-07] MEDS ORDERED: LOSA25TA41 PO (02:22)
[2024-10-07] MEDS: ketorolac trometh 30MG/ML vial 30 MG/ML VIAL IM ONE (03:13)
[2024-10-07 05:10] LABS: APTT 27 SECONDS (22-32); INR 1.0 INR
[2024-10-07 05:16] LABS: MEAN PLATELET VOLUME 7.2 FL (7.4-10.4); RED CELL DISTRIBUTION WIDTH 14.1 % (11.5-14.5)
--- NOTE | 2024-10-07 05:19 | ELECTROCARDIOGRAPH REPORT ---
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 Reagan Akers Measurements Intervals [place] Rate: 69 P: 9 NC: 206 QRS: -23 QRSD: 95 T: 50 QT: 385 QTc: 413 Interpretive Statements Sinus rhythm Borderline left axis deviation Low voltage, precordial leads Abnormal R-wave progression, late transition Baseline wander in lead(s) V2 Electronically Signed On 10-15-2024 20:10:[address] Reagan Akers Please click the below link to view image of tracing.
[2024-10-07 05:27] LABS: CHOL/HDL RATIO 4.2 (0.00-4.99); CREATININE 2.20 MG/DL (0.40-0.90); LDL CHOLESTEROL 97 MG/DL (50-100); PHOSPHORUS 4.4 MG/DL (2.3-4.5); TOTAL CARBON DIOXIDE 24.2 MMOL/L (24-32); eCRCL 18 ML/MIN; eGFR 21 ML/MIN
[2024-10-07] MEDS: K and/or MAG REPLACEMENT MC SCH (08:00)
[2024-10-07] MEDS: cholecalciferol (vitamin D3) 1,000 unit (25mcg) tablet PO SCH (08:00)
[2024-10-07] MEDS ORDERED: buPROPion SR 150mg tablet PO SCH (08:00)
[2024-10-07] MEDS ORDERED: non-formulary drug (Cholecalciferol (Vitamin D3) (Vitamin D3) 1 CAP) PO SCH (08:00)
--- NOTE | 2024-10-07 10:22 | VASCULAR REPORT ---
Carotid Duplex Clinical History: Recurrent episodes of dizziness Comparison: None Technique: Duplex Doppler evaluation of the extracranial carotid and vertebral arteries including color Doppler and spectral/pulsed waveform analysis was performed. Findings: RIGHT SIDE: The peak systolic velocities are 129 cm/s in the CCA, 117 cm/s in the ICA. The ICA/CCA ratio is 1.0. The external carotid artery is patent with peak systolic velocity of 109 cm/s proximally. The subclavian artery is patent with peak systolic velocity of 234 cm/s. There is appropriate antegrade flow in the right vertebral artery. LEFT SIDE: The peak systolic velocities are 149 cm/s in the CCA, 118 cm/s in the ICA. The ICA/CCA ratio is 0.85 . The external carotid artery is patent with peak systolic velocity of 111 cm/s proximally. The subclavian artery is patent with peak systolic velocity of 196 cm/s. There is appropriate antegrade flow in the left vertebral artery. IMPRESSION: Less than 50% stenosis of bilateral carotid artery systems based on peak systolic velocity criteria a nd presence of atheromatous plaque. Antegrade flow in bilateral vertebral arteries. Multiphasic waveforms in bilateral subclavian arteri es. The right subclavian artery waveforms demonstrate elevated velocity and turbulent characteristics. Th is may represent underlying stenosis. Reference: Radiology 2003; 229:340-346 Normal ICA PSV is <125 cm/sec and no plaque or intimal thickening is visible sonographically addition al criteria include ICA/CCA PSV ratio <2.0 and ICA EDV <40 cm/sec <50% ICA stenosis ICA PSV is <125 cm/sec and plaque or intimal thickening is visible sonographically additional criteria include ICA/CCA PSV ratio <2.0 and ICA EDV <40 cm/sec 50-69% ICA stenosis ICA PSV is 125-230 cm/sec and plaque is visible sonographically additional criter ia include ICA/CCA PSV ratio of 2.0-4.0 and ICA EDV of 40-100 cm/sec 70% ICA stenosis but less than near occlusion ICA PSV is >230 cm/sec and visible plaque and luminal narrowing are seen at see-scale and color Doppler ultrasound (the higher the Doppler parameters lie above the threshold of 230 cm/sec, the greater the likelihood of severe disease) additional criteria include ICA/CCA PSV ratio >4 and ICA EDV >100 cm/sec
--- NOTE | 2024-10-07 15:53 | PROGRESS NOTE- Residence ---
Progress Note - Resident Providers to CC Resident Creating Document: DUARTE ALARCON RES ~ Antibiotic Timeout Antibiotic Ordered?: No Subjective Patient was seen and examined at bedside. She reported cramps at right cough region. She also elaborated further on her dizziness which most likely in line with orthostatic hypotension. I spoke to Dr. Thomason, he will evaluate the patient later this evening and planning to do surgery tomorrow in a.m. Patient will be fed and NPO after midnight. Objective Vital Signs Date Time Temp Pulse Resp B/P (MAP) Pulse Ox O2 Delivery O2 Flow Rate FiO2 10/07/24 13:24 16 10/07/24 10:00 97.4 64 123/42 (69) 94 Room Air 10/07/24 08:00 0.0 General:Alert and oriented x4 HEENT:Normocephalic and atraumatic. Pupils equal round reactive to light and accommodation. Extraocular movements intact. Oral and nasal mucosa moist. 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 No masses or JVD. No bilateral carotid bruit Chest:Bilateral normal breath sounds. No crackles, rhonchi or wheezes Cardiovascular:Regular rate and rhythm. S1-S2 normal. No rubs or murmurs Abdomen:Soft, nontender nondistended. Bowel sounds present Extremities:No cyanosis, or clubbing. Edema around right ankle.. Right ankle in immobilizing splint. Bilateral 2+ pedal pulse. Able to move her toes in bilateral feet without any difficulty Central Nervous System:No gross sensory or motor deficits. CN II to XII intact. Not able to move her right ankle due to pain Skin:Warm and dry Result Diagram: 10/07/24 0443 10/07/24 0443 Coagulation Studies Laboratory Tests Test 10/07/24 04:43 Prothrombin Time 10.5 SECONDS (9.0-12.0) INR International Normalized Ratio 1.0 INR Activated Partial Thromboplast Time 27 SECONDS (22-32) Coagulation Comments Advance Care Planning Advanced Care plannin - 30 Minutes Assessment Assessment The 84-year-old female presented to the ER with significant right ankle pain after a fall. States that she just started dinner and went into the kitchen to place dishes and felt dizzy and fell to the floor. She felt unsteady. These dizziness spells have been going on for "months" now. Plan Plan Right ankle fracture with ground level fall Right ankle showed Acute fracture of medial and lateral malleoli with widening of the medial aspect of the ankle mortise. There is mild lateral displacement of the talus with respect to the tibial plafond. There is severe soft tissue swelling about the ankle. ER physician consulted on-call ortho-Dr. Jaramillo who consulted the nurse staff industrial Dr. Jamal Thomason who will see the patient in a.m. Pain management morphine NPO after midnight for any possible surgical procedure Started DVT prophylaxis Hepatitis no surgical procedure Requires outpatient DEXA scan for osteopenia/osteoporosis Continue home medication vitamin-D Dizziness Recurrent episodes Possible vasovagal syncope with prolonged standing Bilateral carotid ultrasound ordered Echocardiogram ordered EKG showed sinus rhythm without any significant ST or T-wave changes. Has artifacts Continue telemetry monitoring Orthostatic vitals ordered Encouraged compression stockings Started normal saline 75 cc/hour Takes bupropion and sertraline at home Continued bupropion 150 mg p.o. daily. Discuss with the patient and start sertraline as tolerated Pending UA and urine tox, still pending A1C is 6.0, B12 pending Chronic kidney disease Hypertension States that she has stage III CKD Unsure if there is underlying SUN. No baseline available Continue monitoring RFTs Continued home medication amlodipine 10 mg p.o. daily Continue normal saline at 75 cc/hour Renal Diet Hyperlipidemia LDL 97 Continue home medication Parvastatin 40 mg p.o. daily Diet: NPO after midnight Code status: Full code [facility] Resident Date of Service: Oct 07, 2024 Billing Provider: JUN VELEZ MD Common Visit Codes: [id number] INP/OBS CARE(HIGH) DUARTE ALARCON, RES Oct 07, 2024 15:53 JUN VELEZ MD Oct 07, 2024 20:58
--- NOTE | 2024-10-07 17:56 | CONSULTATION REPORT ---
History of Present Illness Providers to CC ~ Reason for Admit\Admit Dx: Fall/dizziness Refering MD: Dr. Iniguez Allergies: Coded Allergies: No Known Drug Allergies (Verified Allergy, Unknown, 08/17/21) Penicillins (Verified Adverse Reaction, Unknown, 08/17/21) local reaction (soreness, redness) to an injection. Home Medications Home Medications Active Reported Losartan Potassium 25 Mg Tablet 1 Tab PO DAILY Stool Softener (Docusate Sodium) 100 Mg Capsule 1 Cap PO DAILY Vitamin D3 (Cholecalciferol (Vitamin D3)) 50 Mcg (2000 Unit) Capsule 1 Cap PO DAILY [preservision drops] 1 Drop EACHEYE BID Pravastatin Sodium 40 Mg Tablet 1 Tab PO HS Amlodipine Besilate (Amlodipine Besylate) 25 Gm Powder 10 Mg PO HS Wellbutrin SR* (Bupropion HCl) 150 Mg Tablet.sa 75 Mg PO DAILY LOOK-ALIKE SOUND-ALIKE DRUG buSPIRone & buPROPion Zoloft (Sertraline Hcl) 100 Mg Tablet 150 Mg PO Past Family History Family History: Patient reports no known family medical history. Physical Exam Last Vital Signs Recorded: Temperature: 97.4, Source: Oral, Heart Rate: 64, Respiratory Rate: 16, BP: 123/42, Pulse Oximetry: 94, Weight: 88.000 Results Diagram Lab Result Diagram: 10/07/2444210/07/24442 Assessment/Plan Additional Plan surgery tomorrow ORIF ankle MIRTA TRONCOSO DPM Oct 07, 2024 17:56
--- NOTE | 2024-10-07 19:14 | CARDIOLOGY REPORT ---
APPROVED REPORT EXAM: Comprehensive 2D, Doppler, and color-flow Echocardiogram. Patient Location: [facility] Rate: 63 bpm Rhythm: NSR Indications SYNCOPE DIZZINESS CHEMICAL CHECKER: None PRIOR ECHOCARDIOGRAM: None. 2D Dimensions RVDd 2.4 cm IVSd 1.2 (0.7-1.1cm) LVDd 5.0 cm PWd 1.1 (0.7-1.1cm) IVSs 1.6 (0.8-1.2cm) LVDs 3.1 (2.5-4.0cm) PWs 1.7 (0.8-1.2cm) LVOT Diameter 1.99 (1.8-2.4cm) LVEF(%) 67.7 (>50%) FS (%) 37.8 % SV 79.1 ml CO 5.2 L/min M-Mode Dimensions Left Atrium(MM) 3.64 (2.5-4.0cm) Aortic Root 2.51 (2.2-3.7cm) Aortic Cusp Exc 1.61 (1.5-2.0cm) Aortic Valve AoV Peak Gregory. 185.0 cm/s AoV VTI 41.0 cm AO Peak GR. 13.7 mmHg AO Mean GR. 8 mmHg LVOT VTI 27.14 cm LVOT Peak Gregory. 117.1 cm/s ESTRELLA(VTI)/BSA 2.06 cm2/m2 ESTRELLA (VTI) 2.06 cm2 Mitral Valve MV E Velocity 115.9 cm/s MV Peak Gr. 6 mmHg MV DECEL TIME 220 ms MV A Velocity 113.3 cm/s MV PHT 60 ms E/A Ratio 1.0 MVA (PHT) 3.67 cm2 MV CVis602.3 cm/s Pulmonary Valve PAEDP9.26 mmHg Tricuspid Valve TR P. Velocity 305 cm/s RAP ESTIMATE 5 mmHg TR Peak Gr. 37 mmHg RVSP 42 mmHg LEFT VENTRICLE Normal LV size and function. Mild concentric hypertrophy. LVEF is 65-70%. RIGHT VENTRICLE The right ventricle is normal size. The right ventricular systolic function is normal. RVSP 42 mmHg. ATRIA Left atrium is mildly dilated. The right atrium size is normal. AORTIC VALVE Trileaflet AV appears mildly sclerotic without stenosis. No insufficiency. MITRAL VALVE Mild mitral annular calcification without stenosis. Trace regurgitation. TRICUSPID VALVE TV appears structurally normal with mild regurgitation. PULMONIC VALVE The pulmonary valve is normal in structure. No insufficiency. GREAT VESSELS The aortic root is normal in size. The IVC is smalll in size and collapses >50% with inspiration. PERICARDIUM No pericardial effusion. Conclusion Normal LV size and function. Mild concentric hypertrophy. LVEF is 65-70%. The right ventricle is normal size. The right ventricular systolic function is normal. RVSP 42 mmHg . Left atrium is mildly dilated. Trileaflet AV appears mildly sclerotic without stenosis. No insufficiency. Mild mitral annular calcification without stenosis. Trace regurgitation. TV appears structurally normal with mild regurgitation. No pericardial effusion.
[2024-10-08] VITALS (22 sets, daily range): BP systolic 120–167; BP diastolic 47–65; PULSE 62–74; RESP 10–19; TEMP 97.8–98.4; O2SAT 90–100
[2024-10-08 05:31] LABS: MEAN PLATELET VOLUME 7.4 FL (7.4-10.4); RED CELL DISTRIBUTION WIDTH 13.9 % (11.5-14.5)
[2024-10-08 05:47] LABS: APTT 30 SECONDS (22-32); INR 1.0 INR
[2024-10-08 05:59] LABS: CREATININE 2.17 MG/DL (0.40-0.90); PHOSPHORUS 3.8 MG/DL (2.3-4.5); TOTAL CARBON DIOXIDE 23.5 MMOL/L (24-32); eCRCL 18 ML/MIN; eGFR 22 ML/MIN
[2024-10-08] MEDS: buPROPion 75mg tablet PO SCH (09:31)
--- NOTE | 2024-10-08 12:29 | PROGRESS NOTE- Residence ---
Progress Note - Resident Providers to CC Resident Creating Document: DUARTE ALARCON RES ~ Antibiotic Timeout Antibiotic Ordered?: No Subjective Patient was seen and examined at bedside. Pain is well managed, she is NPO and waiting for surgery; scheduled at 1400 today. Objective Vital Signs Date Time Temp Pulse Resp B/P (MAP) Pulse Ox O2 Delivery O2 Flow Rate FiO2 10/08/24 10:00 98.4 71 18 150/54 (86) 93 Room Air 10/08/24 07:15 0.0 General: Awake and Alert, no acute distress. HEENT: Conjunctiva pink, Sclera clear, Mucus Membranes moist. Neck: Supple without masses and tenderness. Resp: Unlabored. Lungs clear to auscultation bilaterally. Heart: Regular Rate and rhythm, normal S1 and S2 without murmur, rub or gallop. Abdomen: Soft and mild to moderate epigastric tenderness. Extremities: No cyanosis,clubbing or edema. Skin: Warm and Dry Result Diagram: 10/08/24 0454 10/08/24 0454 Coagulation Studies Laboratory Tests Test 10/08/24 04:54 Prothrombin Time 10.1 SECONDS (9.0-12.0) INR International Normalized Ratio 1.0 INR Activated Partial Thromboplast Time 30 SECONDS (22-32) Coagulation Comments Advance Care Planning Advanced Care plannin - 30 Minutes Assessment Assessment The 84-year-old female presented to the ER with significant right ankle pain after a fall. States that she just started dinner and went into the kitchen to place dishes and felt dizzy and fell to the floor. She felt unsteady. These dizziness spells have been going on for "months" now. Plan Plan Right ankle fracture with ground level fall Right ankle showed Acute fracture of medial and lateral malleoli with widening of the medial aspect of the ankle mortise. There is mild lateral displacement of the talus with respect to the tibial plafond. There is severe soft tissue swelling about the ankle. ER physician consulted on-call ortho-Dr. Jaramillo who consulted the security public safety officer Dr. Jamal Thomason who will see the patient in a.m. Pain management morphine NPO after midnight for any possible surgical procedure Started DVT prophylaxis Hepatitis no surgical procedure Requires outpatient DEXA scan for osteopenia/osteoporosis Continue home medication vitamin-D Dizziness Recurrent episodes Possible vasovagal syncope with prolonged standing Bilateral carotid ultrasound ordered Echocardiogram ordered EKG showed sinus rhythm without any significant ST or T-wave changes. Has artifacts Continue telemetry monitoring Orthostatic vitals ordered Encouraged compression stockings Started normal saline 75 cc/hour Takes bupropion and sertraline at home Continued bupropion 150 mg p.o. daily. Discuss with the patient and start sertraline as tolerated Pending UA and urine tox, still pending A1C is 6.0, B12 pending Chronic kidney disease Hypertension States that she has stage III CKD Unsure if there is underlying SUN. No baseline available Continue monitoring RFTs Continued home medication amlodipine 10 mg p.o. daily Continue normal saline at 75 cc/hour Renal Diet Hyperlipidemia LDL 97 Continue home medication Parvastatin 40 mg p.o. daily October 08, 2024: Pain well managed. She is NPO, waiting for surgery today at 2:00 p.m.. Requires placement/rehab after surgery, case management is involved. Diet: NPO after midnight Code status: Full code [facility] Resident Date of Service: Oct 08, 2024 Billing Provider: JUN VELEZ MD Common Visit Codes: [id number] INP/OBS CARE(HIGH) DUARTE ALARCON, RES Oct 08, 2024 12:29 JUN VELEZ MD Oct 08, 2024 19:19
[2024-10-08] MEDS ORDERED: bacitracin 15gm ointment TP ONE (14:48)
[2024-10-08] MEDS ORDERED: BUPIVAcaine 2.5mg/ml inj 50ml vial (contains preservative) ONE (14:48)
[2024-10-08] MEDS ORDERED: ondansetron/PF 4mg/2ml inj ONE (15:57)
[2024-10-08] MEDS ORDERED: dexamethasone sod phosphate 4mg/ml inj. ONE (15:57)
[2024-10-08] MEDS ORDERED: propofol inj 20 ML IV ONE (15:57)
[2024-10-08] MEDS ORDERED: ROPIVAcaine 0.5% (5mg/ml) 30ml vial ONE ×2 (15:57)
[2024-10-08] MEDS ORDERED: midazolam 1 mg/ML 2ml injection ONE (15:57)
[2024-10-08] MEDS ORDERED: LIDOcaine 2% (20mg/ml) 5ml vial ONE (15:57)
[2024-10-08] MEDS ORDERED: acetaminophen 1,000mg/100ml IV 100 ML IV ONE (16:26)
[2024-10-08] MEDS ORDERED: enalaprilat 1.25mg/ml 2ml vial IV PRN (16:45)
[2024-10-08] MEDS ORDERED: ondansetron/PF 4mg/2ml inj IV PRN ×2 (16:45→18:10)
[2024-10-08] MEDS ORDERED: hydrALAZINE 20mg/ml inj. IV PRN (16:45)
[2024-10-08] MEDS: ringers solution, lacted 1,000 ML IV SCH (16:45)
[2024-10-08] MEDS ORDERED: fentaNYL/PF 50MCG/1 ML 2ML syringe IV PRN ×2 (16:45)
--- NOTE | 2024-10-08 17:01 | ANESTHESIA RECORDS ---
Nerve Block Providers to [facility] Diagnosis: Neuraxial/Peripheral Nerve Block requested for Post-operative analgesia by Physician above DIAGNOSIS: Post-operative pain. (Body Area) Shoulder: [ ] Arm: [ ] Hand: [ ] Hip: [ ] Knee: [ ] Ankle: [ Right ] Foot: [ ] Leg: [ ] Abdomen: [ ] Other: [ ] Post-operative pain expected to be/is inadequately managed by oral or IV medicines. Regional anesthetic expected to facilitate rehabilitation and/or discharge from facility. Other:[ _] Procedure Performed: Femoral / Saphenous: Right Popliteal Lateral: Right Time out Done?: Yes Time of Time out: 16:05 Procedure Details: PROCEDURE DETAILS: Risks, benefits and alternatives explained Informed consent obtained, and patient wishes to proceed Conscious sedation with indicated monitors Patient positioned, pertinent anatomy defined, sterile technique used Needle used: [ ] 3 1/8 inch Stimuplex Ultra 22ga [ ] 4 inch Stimuplex Ultra 20ga [ X] 6 inch Stimuplex Ultra 20ga [ ] 6 inch, Quikbloc over the needle catheter set 20ga [ ] 4 inch Quikbloc over the needle catheter set 20ga [ ]Other: [ ] Loss of twitch @ [__0.5 ]mA [x ] Single Injection [ ] Catheter Ultrasound Guidance Used: [X ] Yes [ ] No Attempts:[__1,1 ] Medicines injected: [ ]Clonidine Amt:[ ] [ X ]Dexamethasone Amt:[_4mg ] [ X ]Ropivacaine Amt:[_0.5% 60 c.c ] [ ]Bupivacaine Amt:[ ] [ ]Lidocaine Amt:[ ] [ ]Exparel 1.33%:[ ] [ ]Epinephrine Amt[ ] [ ]Other: [ ] Intermittent aspiration during local anesthetic administration No symptoms of intraneural or intravenous injection Patient tolerated procedure well Comments Right posterior thigh is examined with Ultrasound and Popliteal vessles,sciatic nerve bundle are identified. Needle near sciatic nerve bundle and upon stimulation fooot contractions noted.. 35 c.c local mix is injected,spread is noted.Ultrasound image is captured and documented. Right Adduction canal block: Right mid medial thigh is examined with Ultrasound and Adductor canal and vessels are identified. Needle is placed in the canal and after negative aspirations 25 c/c local mix is injected. spread is noted.Ultrasound image is captured and documented. DOLLY MCGRAW MD Oct 08, 2024 17:01
[2024-10-08] MEDS ORDERED: PCA WASTE DOCUMENTATION 1 MG ML MC SCH (18:10)
[2024-10-08] MEDS ORDERED: HYDROcodone/acetaminophen 10/325mg tab PO PRN (18:10)
[2024-10-08] MEDS ORDERED: bisacodyl 10mg suppository rectal RC PRN (18:10)
[2024-10-08] MEDS: morphine 4 MG/ML inj SYRINge IV PRN (18:58)
[2024-10-08] MEDS ORDERED: HYDROmorph/NS 0.2 mg/ml PCA 100 ML IV SCH (19:00)
[2024-10-08] MEDS: enoxaparin 30mg/0.3ml syringe SUBCUT SCH (20:09)
[2024-10-09 04:05] VITALS: BP 137/58; PULSE 64; RESP 14; TEMP 97.3; O2SAT 98
[2024-10-09 05:26] LABS: MEAN PLATELET VOLUME 7.3 FL (7.4-10.4); RED CELL DISTRIBUTION WIDTH 13.9 % (11.5-14.5)
[2024-10-09 05:40] LABS: APTT 33 SECONDS (22-32); INR 1.0 INR
[2024-10-09 06:00] VITALS: BP 152/57; PULSE 63; RESP 16; TEMP 97.3; O2SAT 98
[2024-10-09 06:00] LABS: CREATININE 1.86 MG/DL (0.40-0.90); PHOSPHORUS 4.5 MG/DL (2.3-4.5); TOTAL CARBON DIOXIDE 21.9 MMOL/L (24-32); eCRCL 21 ML/MIN; eGFR 26 ML/MIN
[2024-10-09 10:00] VITALS: BP 143/61; PULSE 74; RESP 14; TEMP 97.4; O2SAT 98
[2024-10-09 13:50] VITALS: BP_SYST 152; BP_SYST 159; BP_DIAS 53; BP_DIAS 57; PULSE 72; PULSE 75
[2024-10-09] MEDS: HYDROcodone/acetaminophen 5mg/325mg tablet PO PRN (16:33)
[2024-10-09 17:33] VITALS: RESP 16
--- NOTE | 2024-10-09 18:33 | DISCHARGE SUMMARY-Residence ---
Discharge Summary Providers to CC Resident Creating Document: TENISHA MILTON, RES ~ Discharge Summary Admission Diagnosis: Fall/Dizziness Hospital Course DATE OF ADMISSION: OCTOBER 06, 2024 DATE OF DISCHARGE: OCTOBER 09, 2024 Discharge Diagnosis\Comment: Right ankle Acute traumatic closed fracture of medial and lateral malleoli Dizziness; secondary to orthostatic hypotension Chronic kidney disease Hypertension Hyperlipidemia Operations\Procedures: Right ankle surgery Consultants: Dr. Jamal Thomason Complications: None Condition on DC: Stable New Medications: Aspirin (Aspirin) 325 Mg Tablet 325 MG PO DAILY for 30 Days, #30 TAB Do not stop medication unless instructed by prescriber. Amlodipine Besylate (Amlodipine Besylate) 5 Mg Tablet 10 MG PO HS for 30 Days, #30 TAB Cyclobenzaprine* (Cyclobenzaprine*) 10 Mg Tablet 10 MG PO Q8H PRN for muscle spasms for 30 Days, #60 TAB Continued Medications: Bupropion Hcl SR* (Wellbutrin SR*) 150 Mg Tablet.sa 75 MG PO DAILY, TAB LOOK-ALIKE SOUND-ALIKE DRUG buSPIRone & buPROPion Cholecalciferol (Vitamin D3) (Vitamin D3) 50 Mcg (2000 Unit) Capsule 1 CAP PO DAILY, CAP 0 Refills Docusate Sodium (Stool Softener) 100 Mg Capsule 1 CAP PO DAILY, CAP 0 Refills Losartan Potassium (Losartan Potassium) 25 Mg Tablet 1 TAB PO DAILY for 30 Days, #30 TAB (This prescription has been renewed) Pravastatin Sodium (Pravastatin Sodium) 40 Mg Tablet 1 TAB PO HS, TAB [preservision drops] () 1 DROP EACHEYE BID Sertraline Hcl (Zoloft) 100 Mg Tablet 150 MG PO, TAB Discontinued Medications: Amlodipine Besylate (Amlodipine Besilate) 25 Gm Powder 10 MG PO HS Discharge Summary: 84-year-old female presented with significant right ankle pain after ground level fall. Imaging confirmed a right ankle fracture. She underwent surgical intervention by Dr. Thomason and had an uncomplicated postoperative course. The patient was stable at the time of transferred to a rehab facility. She also reported episodes of dizziness, likely secondary to orthostatic hypotension. Her chronic medical conditions, including chronic kidney disease, hypertension, and hyperlipidemia, were managed appropriately during hospitalization. She was discharged in stable condition with instruction and follow up scheduled with Dr. Thomason in one week. Physical exam Vital Signs Date Time Temp Pulse Resp B/P (MAP) Pulse Ox O2 Delivery O2 Flow Rate FiO2 10/09/24 17:33 16 10/09/24 13:50 75 159/53 (88) 72 152/57 (88) 10/09/24 10:00 97.4 98 10/09/24 08:00 Room Air 10/09/24 04:05 1.0 General: Awake and Alert, no acute distress. HEENT: Conjunctiva pink, Sclera clear, Mucus Membranes moist. Neck: Supple without masses and tenderness. Resp: Unlabored. Lungs clear to auscultation bilaterally. Heart: Regular Rate and rhythm, normal S1 and S2 without murmur, rub or gallop. Abdomen: Soft and mild to moderate epigastric tenderness. Extremities: No cyanosis,clubbing or edema. Skin: Warm and Dry *Problems/Diagnosis: (1) Closed right ankle fracture Status: Acute Total Time Spent on D/C: Up to 30 Minutes Counseling Services Smoking & Tobacco Cessation: 3-10 Minutes Date of Service: Oct 09, 2024 Billing Provider: JUN VELEZ MD Common Visit Codes: [id number] DISCH DAY >30min TENISHA MILTON, RES Oct 09, 2024 18:32 JUN VELEZ MD Oct 13, 2024 10:55
--- NOTE | 2024-10-23 07:59 | OPERATIVE REPORT ---
DATE OF SURGERY: 10/09/2024 DICTATING PHYSICIAN: Jamal Thomason DPM PREOPERATIVE DIAGNOSIS: Right trimalleolar ankle fracture. POSTOPERATIVE DIAGNOSIS: Right trimalleolar ankle fracture. PROCEDURE: ORIF of right ankle fracture, bimalleolar repair. POSITION: Supine. HEMOSTASIS: Thigh tourniquet set to 300 mmHg. ANESTHESIA: Per anesthesia note. ESTIMATED BLOOD LOSS: Approximately 20 mL. COMPLICATIONS: None. FINDINGS: As expected. SPECIMENS: None. PROCEDURE DETAILS: The patient sustained a trimalleolar ankle fracture to the right ankle with preoperative imaging showing less than 15% of the joint surface involving the posterior malleolar fracture. The ankle joint was displaced. The fibula fracture was at the joint line. The patient presented to [facility] ER with ankle fracture and the patient was referred to me. I explained the procedure along with all risks and complications to the patient and her daughter on the floor and once again in the holding room. The patient and family were seen in the holding room. Planned procedures were explained to the patient in detail along with all the risks and benefits. The patient consented to the planned procedures and the correct limb was signed. The patient was taken to the operating room and placed on the operating table in the supine position. Tourniquet was placed and the right lower extremity was scrubbed and draped in normal sterile fashion. The right lower extremity was exsanguinated and the tourniquet was inflated. Attention was then directed to the right ankle. An approximately 8 cm incision was made over the top of the lateral malleolus, extending from the ____ proximally over top of the fracture site. The incision was taken down to the level of bone utilizing blunt and sharp dissection to make sure to avoid all vital neurovascular structures. The fracture site was identified and the soft tissues were reflected from the bone. The fracture site was cleaned with a curette and irrigated to remove any debris. The fracture site was then reduced utilizing lobster claw. Interfrag screw was placed over top of the fracture site. The interfrag provided enough stability to go ahead and remove the clamp and the Aguila #28 distal fibular plate was then placed over top of the fibula, verified its position under fluoroscopy, and the appropriate-sized screws were placed in the appropriate holes. The position and alignment were adequate at this point in time. Attention was then directed to the medial malleolus. Upon reduction of the fibula, the medial malleolus reduced appropriately and so the medial malleolus fixated with two percutaneous screws, two 4.0 cannulated percutaneous screws going across the fracture site in a parallel fashion. Good compression and alignment was obtained and verified under fluoroscopy. At this point in time, the posterior malleolar fracture was identified and determined to be a small enough portion of the joint surface to not need fixation. At this point in time, a bone hook was placed over top of the fibula and the syndesmotic integrity was checked and determined to be intact. At this point in time, the sites were copiously irrigated. DBM was placed to the fibular fracture site. The deep tissues were closed with 2-0 Vicryl. The surgical site was then irrigated once again. The next layer was closed with 3-0 Vicryl and the skin was closed with geraldo. A Betadine sterile dressing was applied along with short-leg splint. The patient tolerated the anesthesia and procedure well and was transferred from the operating room to recovery room in stable condition. Jamal Thomason DPM TID: [id number] RECEIPT: [id number] [facility]ANNY
== END 2024-10-09 17:30 | DRG 493 ==
LOC: ER 19:08 → ED HOLD 23:40 → ORTHO 4S 10-07 01:15
PROVIDERS: ADMIT Internal Medicine; ATTEND Internal Medicine
PROC: 3E0T3BZ Introduction of Anesthetic Agent into Peripheral Nerves and Plexi, Percutaneous Approach (ICD-10-PCS; principal; 2024-10-09)
PROC: 3E0T33Z Introduction of Anti-inflammatory into Peripheral Nerves and Plexi, Percutaneous Approach (ICD-10-PCS; 2024-10-09)
PROC: 0QSG04Z Reposition Right Tibia with Internal Fixation Device, Open Approach (ICD-10-PCS; 2024-10-09)
PROC: 0QSJ04Z Reposition Right Fibula with Internal Fixation Device, Open Approach (ICD-10-PCS; 2024-10-09)
DX: S82.851A Displaced trimalleolar fracture of right lower leg, initial encounter for closed fracture (principal); N18.4 Chronic kidney disease, stage 4 (severe); I95.1 Orthostatic hypotension; I12.9 Hypertensive chronic kidney disease with stage 1 through stage 4 chronic kidney disease, or unspecified chronic kidney disease; E78.5 Hyperlipidemia, unspecified; W18.39XA Other fall on same level, initial encounter; Z88.0 Allergy status to penicillin; Z79.899 Other long term (current) drug therapy; Y93.89 Activity, other specified; Y92.89 Other specified places as the place of occurrence of the external cause; Y99.8 Other external cause status
CPT/HCPCS: 36415; 70450; 71045; 72125; 73600; 76000; 80048; 80053; 80061; 82607; 82948; 83036; 83735; 83880; 84100; 84484; 85025; 85610; 85730; 87081; 93005; 93306; 93880; 96365; 96375; 97161; 97530; 99285; A4215; A4615; A4618; A6223; A6253; A6449; A7000; C1713; G0378; J0131; J0690; J1100; J1650; J1885; J2003; J2250; J2270; J2405; J2704; J2795; J3010; J3490; J7030; J7120